=== PATIENT | male | born 1995 ===

== ENCOUNTER 2016-05-18 20:11 | Observation (INO) | payer OTHER ==
[2016-05-18] MEDS ORDERED: Vancomycin 1gm in NS 250ml 250 ML IVPB STA (21:08)
[2016-05-18] MEDS ORDERED: Sodium Chloride 0.9% 1,000 ML IV SCH (21:15)
--- NOTE | 2016-05-18 21:15 | ED PDOC ---
Arrival/HPI <Aron Shi - Last Filed: 05/19/16 00:06> - General Historian: Patient <Geovany Espana - Last Filed: 05/23/16 15:22> - General Chief Complaint: Lower Extremity Problem/Injury Time Seen by Provider: 05/18/16 20:48 - History of Present Illness Narrative History of Present Illness (Text): 05/18/16 21:15 20 y/o male, no pmh, nkda, send in by the billing specialist from the [place], [place] after fail the outpatient oral antibiotic. Pt. has rt. toe ingrown toe nail after cutting it too short about 3 months ago, been ignoring the pain and swelling, more painful about 5 days ago and the billing specialist started him on the oral antibiotic but the pain got more severe today and told him to go to the nearest hospital to rule out osteomylitis due to the level of pain and extensive of the cellulitis, no fever or chills, no palpitation, no numbness or tingling, no other medical or psychological complaints. (Geovany Espana) Past Medical History - Provider Review Nursing Documentation Reviewed: Yes - Psychiatric Hx Substance Use: No <Geovany Espana - Last Filed: 05/23/16 15:22> Family/Social History - Physician Review Nursing Documentation Reviewed: Yes Family/Social History: Unknown Family HX Smoking Status: n Hx Alcohol Use: No Hx Substance Use: No <Geovany Espana - Last Filed: 05/23/16 15:22> Allergies/Home Meds <Aron Shi - Last Filed: 05/19/16 00:06> <Geovany Espana - Last Filed: 05/23/16 15:22> Allergies/Adverse Reactions: Allergies No Known Allergies Allergy (Verified 05/18/16 20:23) Review of Systems - Physician Review All systems were reviewed & negative as marked: Yes - Review of Systems Constitutional: absent: Fatigue, Fevers Eyes: absent: Vision Changes ENT: absent: Hearing Changes Cardiovascular: absent: Chest Pain Gastrointestinal: absent: Abdominal Pain, Nausea, Vomiting Genitourinary Male: absent: Dysuria Musculoskeletal: Arthralgias, Myalgias. absent: Back Pain, Neck Pain, Joint Swelling Skin: Rash, Pruritis, Cellulitis. absent: Skin Lesions, Laceration, Abscess, Ulcer Neurological: absent: Headache, Dizziness, Focal Weakness, Gait Changes, Speech Changes, Facial Droop, Disequilibrium, Seizure Psychiatric: absent: Anxiety, Depression, Suicidal Ideation <Geovany Espana - Last Filed: 05/23/16 15:22> Physical Exam Vital Signs Reviewed: Yes Temperature: Afebrile Blood Pressure: Normal Pulse: Regular Respiratory Rate: Normal Appearance: Positive for: Well-Appearing, Non-Toxic, Comfortable Pain Distress: Moderate Mental Status: Positive for: Alert and Oriented X 3 - Systems Exam Head: Present: Atraumatic, Normocephalic Pupils: Present: PERRL Extroacular Muscles: Present: EOMI Conjunctiva: Present: Normal Mouth: Present: Moist Mucous Membranes Neck: Present: Normal Range of Motion Respiratory/Chest: Present: Clear to Auscultation, Good Air Exchange. No: Respiratory Distress, Accessory Muscle Use Cardiovascular: Present: Regular Rate and Rhythm, Normal S1, S2. No: Murmurs Abdomen: Present: Normal Bowel Sounds. No: Tenderness, Distention, Peritoneal Signs Back: Present: Normal Inspection Upper Extremity: Present: Normal Inspection. No: Cyanosis, Edema Lower Extremity: Present: Normal Inspection, Other (Rt. foot: visible cellulitis on the rt. foot entire toe and radiating to the dorsum aspect of the foot with dark brown skin discoloration and dry purulant discharge, +DPPT pulses, FROM without limitation, sensation intact, motor 5/5, +DPPT pulses, capillary refill< 2 seconds, neurovascular intact. ). No: Edema Neurological: Present: GCS=15, CN II-XII Intact, Speech Normal Skin: Present: Warm, Dry, Normal Color. No: Rashes Psychiatric: Present: Alert, Oriented x 3, Normal Insight, Normal Concentration <Geovany Espana - Last Filed: 05/23/16 15:22> Vital Signs Temp Pulse Resp BP Pulse Ox 05/19/16 02:12 88 18 116/74 99 05/19/16 00:12 82 16 107/75 100 05/18/16 22:12 96 H 16 121/72 99 05/18/16 20:15 98.2 F 100 H 18 112/62 98 Medical Decision Making <Aron Shi - Last Filed: 05/19/16 00:06> - Lab Interpretations I have reviewed the lab results: Yes Interpretation: No clinic. lab abnormalty - RAD Interpretation Project Planner: Radiologist <Geovany Espana - Last Filed: 05/23/16 15:22> ED Course and Treatment: 05/18/16 21:12 -labs/blood culture -rt. foot xray and chest x-ray -IV vancomycin/toradol -Will admit for fail outpatient oral antibiotic treatment and need ID and billing specialist evaluation on inpatient. 05/19/16 00:04 -Labs are non-significant -Foot xray show no fracture or dislocation except questionable soft tissue erosion? -Chest x-ray show no active disease -I spoke to the night doctor Dr. Huntley and his resident Dr. Lissette menon which I discussed the case/labs to observation the patient for MRI of the foot to rule out osteomylitis. -I spoke to the ER attending DR. Shi, he agreed on the diagnosis/ treatment and admission plan. (Geovany Espana) - Lab Interpretations Microbiology Results: Microbiology Results 05/18/16 21:50 Blood-Venous Blood Culture - Preliminary NO GROWTH AFTER 4 DAYS 05/18/16 22:00 Blood-Venous Blood Culture - Preliminary NO GROWTH AFTER 4 DAYS Lab Results: 05/18/16 21:00 05/18/16 21:00 Lab Results 05/18/16 21:00: WBC 9.3, RBC 5.77, Hgb 16.7, Hct 48.3, MCV 83.7, MCH 28.9, MCHC 34.6, RDW 13.2, Plt Count 349, MPV 9.2, Gran % 70.5 H, Lymph % (Auto) 20.1 L, [place] % (Auto) 8.0 H, Eos % (Auto) 1.2 L, Baso % (Auto) 0.2, Gran # 6.56 H, Lymph # 1.9, [place] # 0.7 H, Eos # 0.1, Baso # 0.02, Sodium 139, Potassium 3.8, Chloride 97 L, Carbon Dioxide 29, Anion Gap 17, BUN 13, Creatinine 0.8, Est GFR ( Amer) > 60, Est GFR (Non-Af Amer) > 60, Random Glucose 99, Calcium 9.8 , Total Bilirubin 0.9, AST 43, ALT 33, Alkaline Phosphatase 132, Total Protein 9.6 H, Albumin 5.0 H, Globulin 4.6, Albumin/Globulin Ratio 1.1 - RAD Interpretation Radiology Orders: 05/18/16 21:08 CHEST PORTABLE [RAD] Stat FOOT RIGHT GREAT TOE ROUTINE [RAD] Stat Chest x-ray: no active disease Rt. foot xray: soft tissue swelling, possible small erosion? (Geovany Espana) - Medication Orders Current Medication Orders: Discontinued Medications Enoxaparin Sodium (Lovenox) 40 mg SC DAILY [facility] PRN Reason: Protocol Last Admin: 05/19/16 09:31 Dose: 40 MG Protocol for PTT Monitoring Document 05/19/16 09:31 Susan (Rec: 05/19/16 09:31 [id number]) Protocol Protocol for PTT Monitoring Following clinical pathway protocol (regime/therapy) Subcutaneous Administrations Document 05/19/16 09:31 CHERYLE (Rec: 05/19/16 09:31 [id number]) Injection Site MAR Injection Site Right Abdomen Charges for Administration # of Subcutaneous Administrations 1 Sodium Chloride (Sodium Chloride 0.9%) 1,000 mls @ 100 mls/hr IV .Q10H [facility] Last Admin: 05/18/16 21:30 Dose: 100 MLS/HR eMAR Start Stop Document 05/18/16 21:30 ELIZABETH (Rec: 05/19/16 01:37 ELIZABETH [id number]) Intravenous Solution Start Date 05/18/16 Start Time 21:30 Vancomycin HCl (Vancomycin 1gm) 250 mls @ 167 mls/hr IVPB STAT STA PRN Reason: Protocol Stop: 05/18/16 22:37 Last Admin: 05/18/16 22:11 Dose: 167 MLS/HR eMAR Start Stop Document 05/18/16 22:11 ELIZABETH (Rec: 05/18/16 22:12 ELIZABETH [id number]) Intravenous Solution Start Date 05/18/16 Start Time 22:11 End Date 05/19/16 End time 00:11 Total Infusion Time 120 Cefazolin Sodium (Ancef 1gm In Ns) 100 mls @ 100 mls/hr IVPB Q8 [facility] PRN Reason: Protocol Last Admin: 05/19/16 13:26 Dose: 100 MLS/HR eMAR Start Stop Document 05/19/16 13:26 KAA (Rec: 05/19/16 13:26 KASusan [id number]) Intravenous Solution Start Date 05/19/16 Start Time 13:26 End Date 05/19/16 End time 14:26 Total Infusion Time 60 Vancomycin HCl (Vancomycin 1gm) 250 mls @ 167 mls/hr IVPB Q12H [facility] PRN Reason: Protocol Stop: 05/26/16 06:31 Vancomycin HCl (Vancomycin 1gm) 250 mls @ 167 mls/hr IVPB 1000,2200 [facility]ER PRN Reason: Protocol Last Admin: 05/19/16 09:32 Dose: 167 MLS/HR eMAR Start Stop Document 05/19/16 09:32 KAA (Rec: 05/19/16 09:32 KAA [id number]) Intravenous Solution Start Date 05/19/16 Start Time 09:32 End Date 05/19/16 End time 11:02 Total Infusion Time 90 Ketorolac Tromethamine (Toradol) 30 mg IVP STAT STA Stop: 05/18/16 21:09 Last Admin: 05/18/16 22:15 Dose: 30 MG IVP Administration Document 05/18/16 22:15 ELIZABETH (Rec: 05/18/16 22:15 ELIZABETH [id number]) Charges for Administration # of IVP Administrations 1 Ketorolac Tromethamine (Toradol) 15 mg IVP Q6 PRN PRN Reason: Pain, moderate (4-7) Pantoprazole Sodium (Protonix Ec Tab) 40 mg PO ACB [facility] Last Admin: 05/19/16 09:30 Dose: 40 MG Silver Sulfadiazine (Silvadene 1% 20 Gm) 0 ea TOP BID [facility] - PA / HOISTING ENGINEER / Resident Statement CHIVO has reviewed & agrees with the documentation as recorded. CHIVO has examined the patient and agrees with the treatment plan. <Aron Shi - Last Filed: 05/19/16 00:06> - PA / HOISTING ENGINEER / Resident Statement CHIVO has reviewed & agrees with the documentation as recorded. <Geovany Espana - Last Filed: 05/23/16 15:22> Disposition/Present on Arrival <Aron Shi - Last Filed: 05/19/16 00:06> - Present on Arrival Any Indicators Present on Arrival: No History of DVT/PE: No History of Uncontrolled Diabetes: No Urinary Catheter: No History of Decub. Ulcer: No History Surgical Site Infection Following: None - Disposition Have Diagnosis and Disposition been Completed?: Yes Disposition Time: 21:13 Patient Plan: Observation <Geovany Espana - Last Filed: 05/23/16 15:22> - Disposition Diagnosis: Cellulitis of foot, Failure of outpatient treatment Disposition: HOSPITALIZED Condition: STABLE
[2016-05-18 22:04] LABS: ADD MANUAL DIFF? NO
[2016-05-18 22:09] LABS: BASO # 0.02 K/mm3 (0.0-2.0); BASO % 0.2 % (0.0-3.0); EOS # 0.1 (0.0-0.7); EOS % 1.2 % (1.5-5.0); GRAN # 6.56 (1.4-6.5); GRAN % 70.5 % (50.0-68.0); HEMATOCRIT 48.3 % (42.0-52.0); LYMPH # 1.9 (1.2-3.4); LYMPH % 20.1 % (22.0-35.0); MEAN CELL VOLUME 83.7 fL (80.0-105.0); MEAN CORPUSCULAR HEMOGLOBIN 28.9 pg (25.0-35.0); MEAN CORPUSCULAR HGB CONC 34.6 g/dl (31.0-37.0); MEAN PLATELET VOLUME 9.2 fl (7.0-11.0); MONO # 0.7 (0.1-0.6); PLATELET COUNT 349 10^3/uL (120.0-450.0); RED CELL DISTRIBUTION WIDTH 13.2 % (11.5-14.5); WHITE BLOOD COUNT 9.3 10^3/ul (4.5-11.0)
[2016-05-18 22:20] LABS: ALB/GLOB RATIO 1.1 (1.1-1.8); ALKALINE PHOSPHATASE 132 U/L (38-133); ALT/SGPT 33 U/L (7-56); AST/SGOT 43 U/L (15-59); BILIRUBIN,TOTAL 0.9 mg/dL (0.2-1.3); BLOOD UREA NITROGEN 13 mg/dL (7-21); CALCIUM 9.8 mg/dL (8.4-10.5); CARBON DIOXIDE 29 mmol/L (21-33); CHLORIDE 97 mmol/L (98-107); GFR AFRICAN-AMERICAN > 60; GLUCOSE,RANDOM 99 mg/dL (70-110); POTASSIUM 3.8 mmol/L (3.6-5.0); SODIUM 139 mmol/L (132-148); TOTAL PROTEIN 9.6 g/dL (5.8-8.3)
--- NOTE | 2016-05-19 01:00 | CP.PCM.HP ---
<Lissette Moss - Last Filed: 05/19/16 01:42> History of Present Illness - History of Present Illness History of Present Illness: PGY [address] Neville H&P Admission: R foot cellulits failed outpatient treatment 20 y/o male, no pmh, nkda, send in by the lube man from the [place], [place] after fail the outpatient oral antibiotic. Pt. has rt. toe ingrown toe nail after cutting it too short about 3 months ago, been ignoring the pain and swelling, more painful about 5 days ago and the lube man started him on the oral antibiotic but the pain got more severe today. Mechanical Expert told pt to go to the nearest hospital to rule out osteomylitis due to the level of pain and extensive of the cellulitis. Currently the pain localizes from R toe to 1st metatarsalphalageal joint, 1-2/10 at rest. When bear weight, it can be 5/10. Pt ambulates independently without assistive device. In the ED, T 98.2, HR 100. BP 112/62. RR 18. 98RA WBC 9.3. Electrolytes wnl. Ketoroc was able to control the pain Blood Culture were drawn. Pt received vango x 1 and 1L NS bolus. R foot x-ray and CXR was taken in ED. ROS - no fever or chills, no CP/SOB/palpitation, no numbness or tingling, dyusria, N/V/D/C PMH None PSH None FH Healthy SH Live with cousin. Ambulate in Never smoke. All NKDA Med None PMD none Outpatient lube man Yu Hwang DPM Present on Admission - Present on Admission Any Indicators Present on Admission: No Past Patient History - Past Social History Smoking Status: n - PSYCHIATRIC Hx Substance Use: No - SURGICAL HISTORY Hx Surgeries: No Meds Allergies/Adverse Reactions: Allergies Allergy/AdvReac Type Severity Reaction Status Date / Time No Known Allergies Allergy Verified 05/18/16 20:23 Physical Exam - Constitutional Appears: No Acute Distress - Head Exam Head Exam: ATRAUMATIC, NORMOCEPHALIC - Eye Exam Eye Exam: EOMI, Normal appearance, PERRL - ENT Exam ENT Exam: Mucous Membranes Moist - Neck Exam Neck exam: Negative for: Lymphadenopathy, Meningismus Additional comments: supple - Respiratory Exam Respiratory Exam: Clear to Auscultation Bilateral, NORMAL BREATHING PATTERN. absent: Rales, Rhonchi, Wheezes - Cardiovascular Exam Cardiovascular Exam: REGULAR RHYTHM, +S1, +S2. absent: Systolic Murmur - GI/Abdominal Exam GI & Abdominal Exam: Normal Bowel Sounds, Soft. absent: Tenderness - Extremities Exam Extremities exam: Positive for: normal capillary refill, pedal pulses present. Negative for: calf tenderness, pedal edema Additional comments: R toe swollen with erythema, no drainage, no bleed. Increased warmth big toe, R foot. All joint ROM intact without pain up to knee. No hall cyst b/l. - Back Exam Back exam: absent: CVA tenderness (L), CVA tenderness (R) Results - Vital Signs Recent Vital Signs: Last Vital Signs Temp 98.2 F 05/18/16 20:15 Pulse 100 H 05/18/16 20:15 Resp 18 05/18/16 20:15 BP 112/62 05/18/16 20:15 Pulse Ox 98 05/18/16 20:15 - Labs Result Diagrams: 05/18/16 21:00 05/18/16 21:00 Assessment & Plan - Assessment and Plan (Free Text) Plan: 20 y/o male, no pmh, nkda, send in by the lube man from the [place], [place] for R toe/hallus cellulitis after failed the outpatient oral antibiotic R toe/hallus cellulitis - No tachycardia, no need for doppler R leg vein - toradol for pain control - Ancef IV - elevated R leg - chest A1c R/o osteomyelitis - MRI R foot - ESR, CRP Prophylaxis - lovenox - protonix S/R/D/w Dr. Neville - Date & Time Date: 05/19/16 Time: 01:50 <Camilo Neville - Last Filed: 05/19/16 21:03> Results - Vital Signs Recent Vital Signs: Last Vital Signs Temp 97.6 F 05/19/16 08:52 Pulse 80 05/19/16 08:52 Resp 18 05/19/16 08:52 BP 120/72 05/19/16 08:52 Pulse Ox 98 05/19/16 08:52 - Labs Result Diagrams: 05/19/16 07:50 05/19/16 07:50 Labs: Laboratory Results - last 24 hr 05/19/16 07:50 WBC 10.7 RBC 5.29 Hgb 14.9 Hct 44.4 MCV 83.9 MCH 28.2 MCHC 33.6 RDW 13.3 Plt Count 317 MPV 9.0 Gran % 75.7 H Lymph % (Auto) 18.3 L [place] % (Auto) 3.9 Eos % (Auto) 2.0 Baso % (Auto) 0.1 Gran # 8.13 H Lymph # 2.0 [place] # 0.4 Eos # 0.2 Baso # 0.01 ESR 3 Sodium 142 Potassium 4.3 Chloride 105 Carbon Dioxide 27 Anion Gap 14 BUN 12 Creatinine 0.6 Est GFR ( Amer) > 60 Est GFR (Non-Af Amer) > 60 Random Glucose 98 Hemoglobin A1c 5.5 Calcium 9.0 Total Bilirubin 1.1 AST 30 ALT 28 Alkaline Phosphatase 106 C-React Prot High Sens 2.24 Total Protein 7.5 Albumin 4.0 Globulin 3.6 Albumin/Globulin Ratio 1.1 Attending/Attestation - Attestation I have personally seen and examined this patient.: Yes I have fully participated in the care of the patient.: Yes I have reviewed all pertinent clinical information: Yes Notes (Text): 05/19/16 21:02 Patient was seen by me when he was in room # 12 in the ER. Agree with history , physical examination , assessment and plan.
[2016-05-19 05:16] VITALS: BMI 23.2
[2016-05-19] MEDS ORDERED: Vancomycin 1gm in NS 250ml 250 ML IVPB SCH ×2 (06:30→10:00)
[2016-05-19] MEDS ORDERED: Pantoprazole 40 mg EC Tab PO SCH (07:30)
[2016-05-19 08:00] LABS: ADD MANUAL DIFF? NO
[2016-05-19 08:09] LABS: BASO # 0.01 K/mm3 (0.0-2.0); BASO % 0.1 % (0.0-3.0); EOS # 0.2 (0.0-0.7); GRAN # 8.13 (1.4-6.5); GRAN % 75.7 % (50.0-68.0); HEMATOCRIT 44.4 % (42.0-52.0); LYMPH % 18.3 % (22.0-35.0); MEAN CELL VOLUME 83.9 fL (80.0-105.0); MEAN CORPUSCULAR HEMOGLOBIN 28.2 pg (25.0-35.0); MEAN CORPUSCULAR HGB CONC 33.6 g/dl (31.0-37.0); MONO # 0.4 (0.1-0.6); MONO % 3.9 % (1.0-6.0); PLATELET COUNT 317 10^3/uL (120.0-450.0); RED CELL DISTRIBUTION WIDTH 13.3 % (11.5-14.5); WHITE BLOOD COUNT 10.7 10^3/ul (4.5-11.0)
--- NOTE | 2016-05-19 08:49 | RAD ---
HISTORY: medical clearance COMPARISON: No prior. FINDINGS: LUNGS: No active pulmonary disease. PLEURA: No significant pleural effusion identified, no pneumothorax apparent. CARDIOVASCULAR: Normal. OSSEOUS STRUCTURES: No significant abnormalities. VISUALIZED UPPER ABDOMEN: Normal. OTHER FINDINGS: None. IMPRESSION: No active disease.
--- NOTE | 2016-05-19 08:51 | RAD ---
PROCEDURE: Radiographs of the right great toe. TECHNIQUE:: AP radiograph of the right foot, with oblique and lateral view of the right great toe. COMPARISON: None. FINDINGS: BONES: Suspicious for possible small erosion at the tip of distal phalanx of the big toe. There is adjacent punctate calcification or small ossicles. JOINTS: Normal. SOFT TISSUES: Soft tissue swelling seen at the mid and distal PICC 2. OTHER FINDINGS: None. IMPRESSION: Soft tissue swelling and possible small erosion at the distal right big toe. If clinically warranted further assessment by other moderately is suggested to evaluate for osteomyelitis.
[2016-05-19 08:53] VITALS: BP 120/72; PULSE 80; RESP 18; TEMP 97.6; O2SAT 98
[2016-05-19 08:58] LABS: ALB/GLOB RATIO 1.1 (1.1-1.8); ALKALINE PHOSPHATASE 106 U/L (38-133); ALT/SGPT 28 U/L (7-56); AST/SGOT 30 U/L (15-59); BILIRUBIN,TOTAL 1.1 mg/dL (0.2-1.3); BLOOD UREA NITROGEN 12 mg/dL (7-21); CARBON DIOXIDE 27 mmol/L (21-33); CHLORIDE 105 mmol/L (98-107); GFR AFRICAN-AMERICAN > 60; GLUCOSE,RANDOM 98 mg/dL (70-110); POTASSIUM 4.3 mmol/L (3.6-5.0); SODIUM 142 mmol/L (132-148); TOTAL PROTEIN 7.5 g/dL (5.8-8.3)
[2016-05-19 09:02] LABS: ERYTHROCYTE SEDIMENTATION RATE 3 mm/hr (0.0-15.0)
[2016-05-19] MEDS ORDERED: Enoxaparin 40 mg Syringe SC SCH (10:00)
--- NOTE | 2016-05-19 13:13 | CP.PCM.CON ---
History of Present Illness - History of Present Illness History of Present Illness: 20 y/o male, no pmh, nkda, seen at bedside for right big toe cellulitis and infection secondary to failed ingrown toenail treatment. Patient was sent in by the medical practice administrator from the [place], [place] after fail the outpatient oral antibiotic. Pt. has rt. toe ingrown toe nail after cutting it too short about 3 months ago, been ignoring the pain and swelling, more painful about 5 days ago and the medical practice administrator started him on the oral antibiotic but the pain got more severe today. Tool Or Die Drawing Checker told pt to go to the nearest hospital to rule out osteomylitis due to the level of pain and extensive of the cellulitis. Currently the pain localizes from R toe to 1st metatarsalphalageal joint, 2/10 at rest. When bear weight, it can be 5/10. Patient denies n/f/c/v/d/sob. Review of Systems - Constitutional Constitutional: As Per HPI Past Patient History - Past Social History Smoking Status: Never Smoked - MUSCULOSKELETAL/RHEUMATOLOGICAL Hx Falls: No - PSYCHIATRIC Hx Substance Use: No - SURGICAL HISTORY Hx Surgeries: No Meds Allergies/Adverse Reactions: Allergies Allergy/AdvReac Type Severity Reaction Status Date / Time No Known Allergies Allergy Verified 05/18/16 20:23 - Medications Medications: Current Medications Enoxaparin Sodium (Lovenox) 40 mg SC DAILY [facility]ANDER PRN Reason: Protocol Last Admin: 05/19/16 09:31 Dose: 40 mg Sodium Chloride (Sodium Chloride 0.9%) 1,000 mls @ 100 mls/hr IV .Q10H [facility] Last Admin: 05/18/16 21:30 Dose: 100 mls/hr Cefazolin Sodium (Ancef 1gm In Ns) 100 mls @ 100 mls/hr IVPB Q8 [facility]ANDER PRN Reason: Protocol Vancomycin HCl (Vancomycin 1gm) 250 mls @ 167 mls/hr IVPB 1000,2200 ALEXSANDER PRN Reason: Protocol Last Admin: 05/19/16 09:32 Dose: 167 mls/hr Ketorolac Tromethamine (Toradol) 15 mg IVP Q6 PRN PRN Reason: Pain, moderate (4-7) Pantoprazole Sodium (Protonix Ec Tab) 40 mg PO ACB [facility] Last Admin: 05/19/16 09:30 Dose: 40 mg Physical Exam - Constitutional Appears: Well, Non-toxic, No Acute Distress - Extremities Exam Additional comments: right foot focused: vasc: DP/PT 2/4, TG wnl, CFT < 3 sec to all digits, localized edema and erythema to right hallux neuro: grossly intact derm: localized edema and erythema to hallux, darkened discoloration surrounding nail bed, 1CC of purulence expressed from distal aspect of hallux, dried blood noted, medial border of nail bed absent ortho: pain on palpation to medial and lateral borders of right hallux - Neurological Exam Neurological exam: Oriented x3 - Psychiatric Exam Psychiatric exam: Normal Affect, Normal Mood Results - Vital Signs Recent Vital Signs: Last Vital Signs Temp 97.6 F 05/19/16 08:52 Pulse 80 05/19/16 08:52 Resp 18 05/19/16 08:52 BP 120/72 05/19/16 08:52 Pulse Ox 98 05/19/16 08:52 - Labs Result Diagrams: 05/19/16 07:50 05/19/16 07:50 Labs: Laboratory Results - last 24 hr 05/19/16 07:50 WBC 10.7 RBC 5.29 Hgb 14.9 Hct 44.4 MCV 83.9 MCH 28.2 MCHC 33.6 RDW 13.3 Plt Count 317 MPV 9.0 Gran % 75.7 H Lymph % (Auto) 18.3 L [place] % (Auto) 3.9 Eos % (Auto) 2.0 Baso % (Auto) 0.1 Gran # 8.13 H Lymph # 2.0 Tate # 0.4 Eos # 0.2 Baso # 0.01 ESR 3 Sodium 142 Potassium 4.3 Chloride 105 Carbon Dioxide 27 Anion Gap 14 BUN 12 Creatinine 0.6 Est GFR ( Amer) > 60 Est GFR (Non-Af Amer) > 60 Random Glucose 98 Hemoglobin A1c 5.5 Calcium 9.0 Total Bilirubin 1.1 AST 30 ALT 28 Alkaline Phosphatase 106 Total Protein 7.5 Albumin 4.0 Globulin 3.6 Albumin/Globulin Ratio 1.1 Assessment & Plan - Assessment and Plan (Free Text) Assessment: 20 y/o male seen at bedside for right hallux cellulitis secondary to failed ingrown toenail treatment Plan: patient evaluated and chart reviewed seen at bedside with attending Dr. Decker labs and vitals reviewed, afebrile Rx silvadene cream BID aseptic debridement of medial border of right hallux to remove remaining ingrown nail applied silvadene, DSD to right hallux ordered surgical shoe for patient to weight bear x ray of right foot shows soft tissue swelling, no fracture or dislocation f/u wound culture patient stable for d/c on oral keflex 500mg BID x 10 days patient to follow up with Dr. Decker as an outpatient
--- NOTE | 2016-05-19 15:39 | CP.PCM.CON ---
History of Present Illness - History of Present Illness History of Present Illness: 20 year old male with no significant medical history was sent by a Shank Boner for continued swelling and pain of the right hallux associated with an ingrown toe nail. He cut his nail about 3 months ago which led to an ingrown toenail and continued pain and swelling. He saw a mottler machine feeder 5 days ago and was started on PO antibiotics but the pain and swelling continued to worsen. The patient denies animal contacts, no soaking of the feet in water, no walking barefoot on soil. He denies fever or chills, no nausea or vomiting, no chest pain, no SOB, no cough or colds, no headache or dizziness, no abdominal pain, no diarrhea, no dysuria. Infectious Diseases consult is requested to further evaluate and manage. Review of Systems - Review of Systems All systems: reviewed and no additional remarkable complaints except (as per HPI ) Past Patient History - Past Medical History & Family History Past Medical History?: No Past Family History: Reviewed and not pertinent - Past Social History Smoking Status: Never Smoked Alcohol: Occasional Drugs: Denies Home Situation {Lives}: With Family - MUSCULOSKELETAL/RHEUMATOLOGICAL Hx Falls: No - PSYCHIATRIC Hx Substance Use: No - SURGICAL HISTORY Hx Surgeries: No Meds Allergies/Adverse Reactions: Allergies Allergy/AdvReac Type Severity Reaction Status Date / Time No Known Allergies Allergy Verified 05/18/16 20:23 - Medications Medications: Current Medications Enoxaparin Sodium (Lovenox) 40 mg SC DAILY ALEXSANDER PRN Reason: Protocol Sodium Chloride (Sodium Chloride 0.9%) 1,000 mls @ 100 mls/hr IV .Q10H [facility] Last Admin: 05/18/16 21:30 Dose: 100 mls/hr Cefazolin Sodium (Ancef 1gm In Ns) 100 mls @ 100 mls/hr IVPB Q8 ALEXSANDER PRN Reason: Protocol Vancomycin HCl (Vancomycin 1gm) 250 mls @ 167 mls/hr IVPB Q12H [facility]SANDER PRN Reason: Protocol Stop: 05/26/16 06:31 Ketorolac Tromethamine (Toradol) 15 mg IVP Q6 PRN PRN Reason: Pain, moderate (4-7) Pantoprazole Sodium (Protonix Ec Tab) 40 mg PO ACB [facility] Physical Exam - Constitutional Appears: Non-toxic, No Acute Distress - Head Exam Head Exam: NORMAL INSPECTION - ENT Exam ENT Exam: Mucous Membranes Moist - Neck Exam Neck exam: Negative for: Lymphadenopathy, Meningismus - Respiratory Exam Respiratory Exam: Decreased Breath Sounds. absent: Rales, Rhonchi - Cardiovascular Exam Cardiovascular Exam: +S1, +S2 - GI/Abdominal Exam GI & Abdominal Exam: Soft. absent: Tenderness - Extremities Exam Additional comments: right hallux with dry dressings in place Results - Vital Signs Recent Vital Signs: Last Vital Signs Temp 97.7 F 05/19/16 04:52 Pulse 90 05/19/16 04:52 Resp 16 05/19/16 04:52 BP 123/74 05/19/16 04:52 Pulse Ox 99 05/19/16 02:12 - Labs Result Diagrams: 05/19/16 07:50 05/19/16 07:50 Assessment & Plan - Assessment and Plan (Free Text) Plan: Assessment Right hallux skin and skin structure infection (celllulitis) associated with ingrown toenail Plan Started patient on Cefazolin and Vancomycin pending wound cx, blood cx; reviewed Podiatry evaluation and plan Will follow clinically
[2016-05-19] MEDS ORDERED: Silver Sulfadiazine 1% Cream (20 gm) TOP SCH (18:00)
--- NOTE | 2016-05-19 21:48 | CP.PCM.DIS ---
<Hai Nascimento - Last Filed: 05/20/16 20:13> Provider - Provider Date of Admission: 05/19/16 00:04 Attending physician: John Ortiz MD Primary care physician: Yu Hwang DPM Consults: ID: [id number] Podiatry: Jeronimo Time Spent in preparation of Discharge (in minutes): 45 Hospital Course - Lab Results Lab Results: Micro Results 05/19/16 05:34 Toe Gram Stain - Final Most Recent Lab Values WBC 10.7 10^3/ul (4.5-11.0) 05/19/16 07:50 RBC 5.29 10^6/uL (3.5-6.1) 05/19/16 07:50 Hgb 14.9 gm/dL (14.0-18.0) 05/19/16 07:50 Hct 44.4 % (42.0-52.0) 05/19/16 07:50 MCV 83.9 fL (80.0-105.0) 05/19/16 07:50 MCH 28.2 pg (25.0-35.0) 05/19/16 07:50 MCHC 33.6 g/dl (31.0-37.0) 05/19/16 07:50 RDW 13.3 % (11.5-14.5) 05/19/16 07:50 Plt Count 317 10^3/uL (120.0-450.0) 05/19/16 07:50 MPV 9.0 fl (7.0-11.0) 05/19/16 07:50 Gran % 75.7 % (50.0-68.0) H 05/19/16 07:50 Lymph % (Auto) 18.3 % (22.0-35.0) L 05/19/16 07:50 [place] % (Auto) 3.9 % (1.0-6.0) 05/19/16 07:50 Eos % (Auto) 2.0 % (1.5-5.0) 05/19/16 07:50 Baso % (Auto) 0.1 % (0.0-3.0) 05/19/16 07:50 Gran # 8.13 (1.4-6.5) H 05/19/16 07:50 Lymph # 2.0 (1.2-3.4) 05/19/16 07:50 [place] # 0.4 (0.1-0.6) 05/19/16 07:50 Eos # 0.2 (0.0-0.7) 05/19/16 07:50 Baso # 0.01 K/mm3 (0.0-2.0) 05/19/16 07:50 ESR 3 mm/hr (0.0-15.0) 05/19/16 07:50 Sodium 142 mmol/L (132-148) 05/19/16 07:50 Potassium 4.3 mmol/L (3.6-5.0) 05/19/16 07:50 Chloride 105 mmol/L (98-107) 05/19/16 07:50 Carbon Dioxide 27 mmol/L (21-33) 05/19/16 07:50 Anion Gap 14 (10-20) 05/19/16 07:50 BUN 12 mg/dL (7-21) 05/19/16 07:50 Creatinine 0.6 mg/dL (0.5-1.4) 05/19/16 07:50 Est GFR ( Amer) > 60 05/19/16 07:50 Est GFR (Non-Af Amer) > 60 05/19/16 07:50 Random Glucose 98 mg/dL (70-110) 05/19/16 07:50 Hemoglobin A1c 5.5 % (4.2-6.5) 05/19/16 07:50 Calcium 9.0 mg/dL (8.4-10.5) 05/19/16 07:50 Total Bilirubin 1.1 mg/dL (0.2-1.3) 05/19/16 07:50 AST 30 U/L (15-59) 05/19/16 07:50 ALT 28 U/L (7-56) 05/19/16 07:50 Alkaline Phosphatase 106 U/L (38-133) 05/19/16 07:50 C-React Prot High Sens 2.24 mg/L (1.00-3.00) 05/19/16 07:50 Total Protein 7.5 g/dL (5.8-8.3) 05/19/16 07:50 Albumin 4.0 g/dL (3.0-4.8) 05/19/16 07:50 Globulin 3.6 gm/dL 05/19/16 07:50 Albumin/Globulin Ratio 1.1 (1.1-1.8) 05/19/16 07:50 - Hospital Course Hospital Course: Upon Admission: 20yo M with no PMHx here for evaluation of right first in-grown toe nail after cutting it too short 3 months ago. Patient was evaluated by a executive account manager and started on oral ABX. Patient started to have severe pain today and was asked to come into the ER to r/o osteo. Podiatry consult was obtained and aseptic debridement of the medial border of the right hallux was started with silvadene cream. This was prescribed to the patient to use BID. Patient hba1c is 5.5, patient is healthy, afebrile, no leukocytosis. Patient was discharged home on keflex 500mg TID for 10 days. Patient is to follow up with Dr. Decker as out- patient. Wound cultures were sent and are to be followed up with Dr. Decker. 1. Right First Toe cellulitis. Keflex 500mg TID x10 days. Silvadene Upon Discharge: CLEAN TOE WOUND TWICE A DAY WITH PEROXIDE. APPLY SILVADENE AND A DRY DRESSING. FOLLOW UP WITH DR. DECKER ON MONDAY AT 10AM. TAKE ANTIBIOTIC 3 TIMES A DAY. Patient is cleared for discharge as per Dr. Ortiz 1. Follow up with Dr. Decker, Podiatry, in 3 days. Call for appointment 2. Take Antibiotics as prescribed 3. Return to the ER with any concerning symptoms. New Prescription: Keflex 500mg PO tid x10 days #30/0 Discharge Exam - Head Exam Head Exam: ATRAUMATIC, NORMAL INSPECTION, NORMOCEPHALIC - Eye Exam Eye Exam: EOMI, Normal appearance, PERRL. absent: Scleral icterus Pupil Exam: PERRL - ENT Exam ENT Exam: Mucous Membranes Moist - Neck Exam Neck exam: Full Rom - Respiratory Exam Respiratory Exam: Clear to PA & Lateral, NORMAL BREATHING PATTERN. absent: Respiratory Distress - Cardiovascular Exam Cardiovascular Exam: REGULAR RHYTHM, RRR, +S1, +S2. absent: JVD - GI/Abdominal Exam GI & Abdominal Exam: Normal Bowel Sounds, Unremarkable - Extremities Exam Additional comments: right first toe, erythema, ingrown toe-nail. DP and PT pulses intact - Neurological Exam Neurological exam: Alert, Oriented x3, Reflexes Normal - Psychiatric Exam Psychiatric exam: Normal Affect, Normal Mood - Skin Skin Exam: Dry, Intact, Normal Color, Warm Discharge Plan - Discharge Medications Prescriptions: Cephalexin [Keflex] 500 mg PO TID #30 capsule Silver Sulfadiazine 1% 20 gm [Silvadene 1% 20 gm] 1 applic TOP BID #1 tube - Follow Up Plan Condition: STABLE Disposition: HOME/ ROUTINE Instructions: Cellulitis (DC) Additional Instructions: CLEAN TOE WOUND TWICE A DAY WITH PEROXIDE. APPLY SILVADENE AND A DRY DRESSING. FOLLOW UP WITH DR. DECKER ON MONDAY AT 10AM. TAKE ANTIBIOTIC 3 TIMES A DAY. Patient is cleared for discharge as per Dr. rOtiz 1. Follow up with Dr. Decker, Podiatry, in 3 days. Call for appointment 2. Take Antibiotics as prescribed 3. Return to the ER with any concerning symptoms. New Prescription: Keflex 500mg PO tid x10 days #30/0 Referrals: Lenka Decker DPM [Staff Provider] - Yu Hwang DPM [Primary Care Provider] - <John Ortiz MD - Last Filed: 05/21/16 14:33> Provider - Provider Date of Admission: 05/19/16 00:04 Attending physician: John Ortiz MD Primary care physician: Yu Hwang DPM Hospital Course - Lab Results Lab Results: Micro Results 05/19/16 05:34 Toe Gram Stain - Final 05/19/16 05:34 Toe Wound Culture - Preliminary Most Recent Lab Values WBC 10.7 10^3/ul (4.5-11.0) 05/19/16 07:50 RBC 5.29 10^6/uL (3.5-6.1) 05/19/16 07:50 Hgb 14.9 gm/dL (14.0-18.0) 05/19/16 07:50 Hct 44.4 % (42.0-52.0) 05/19/16 07:50 MCV 83.9 fL (80.0-105.0) 05/19/16 07:50 MCH 28.2 pg (25.0-35.0) 05/19/16 07:50 MCHC 33.6 g/dl (31.0-37.0) 05/19/16 07:50 RDW 13.3 % (11.5-14.5) 05/19/16 07:50 Plt Count 317 10^3/uL (120.0-450.0) 05/19/16 07:50 MPV 9.0 fl (7.0-11.0) 05/19/16 07:50 Gran % 75.7 % (50.0-68.0) H 05/19/16 07:50 Lymph % (Auto) 18.3 % (22.0-35.0) L 05/19/16 07:50 [place] % (Auto) 3.9 % (1.0-6.0) 05/19/16 07:50 Eos % (Auto) 2.0 % (1.5-5.0) 05/19/16 07:50 Baso % (Auto) 0.1 % (0.0-3.0) 05/19/16 07:50 Gran # 8.13 (1.4-6.5) H 05/19/16 07:50 Lymph # 2.0 (1.2-3.4) 05/19/16 07:50 [place] # 0.4 (0.1-0.6) 05/19/16 07:50 Eos # 0.2 (0.0-0.7) 05/19/16 07:50 Baso # 0.01 K/mm3 (0.0-2.0) 05/19/16 07:50 ESR 3 mm/hr (0.0-15.0) 05/19/16 07:50 Sodium 142 mmol/L (132-148) 05/19/16 07:50 Potassium 4.3 mmol/L (3.6-5.0) 05/19/16 07:50 Chloride 105 mmol/L (98-107) 05/19/16 07:50 Carbon Dioxide 27 mmol/L (21-33) 05/19/16 07:50 Anion Gap 14 (10-20) 05/19/16 07:50 BUN 12 mg/dL (7-21) 05/19/16 07:50 Creatinine 0.6 mg/dL (0.5-1.4) 05/19/16 07:50 Est GFR ( Amer) > 60 05/19/16 07:50 Est GFR (Non-Af Amer) > 60 05/19/16 07:50 Random Glucose 98 mg/dL (70-110) 05/19/16 07:50 Hemoglobin A1c 5.5 % (4.2-6.5) 05/19/16 07:50 Calcium 9.0 mg/dL (8.4-10.5) 05/19/16 07:50 Total Bilirubin 1.1 mg/dL (0.2-1.3) 05/19/16 07:50 AST 30 U/L (15-59) 05/19/16 07:50 ALT 28 U/L (7-56) 05/19/16 07:50 Alkaline Phosphatase 106 U/L (38-133) 05/19/16 07:50 C-React Prot High Sens 2.24 mg/L (1.00-3.00) 05/19/16 07:50 Total Protein 7.5 g/dL (5.8-8.3) 05/19/16 07:50 Albumin 4.0 g/dL (3.0-4.8) 05/19/16 07:50 Globulin 3.6 gm/dL 05/19/16 07:50 Albumin/Globulin Ratio 1.1 (1.1-1.8) 05/19/16 07:50 Attending/Attestation - Attestation I have personally seen and examined this patient.: Yes I have fully participated in the care of the patient.: Yes I have reviewed all pertinent clinical information, including history, physical exam and plan: Yes Notes (Text): Patient was seen and examined with biomedical engineering technician .Agreed with resident assessment and plan. 20 yrs male was admitted with right hallux cellulitis, was evaluated by Podiatry and was cleared for discharged with oral antibiotics.Patient will be discharged home and will follow up with Podiatry Management plan was discussed in detail with patient Education was provided.
== END 2016-05-19 18:22 | disposition home or self-care (01) ==
LOC: ED 20:11 → ERH 05-19 00:04 → 5RSO 05-19 04:25
PROVIDERS: ADMIT Internal Medicine; ATTEND Internal Medicine
DX: L03.031 Cellulitis of right toe (principal); L60.0 Ingrowing nail; L03.115 Cellulitis of right lower limb
CPT/HCPCS: 36415; 71010; 73660; 80053; 83036; 85025; 85651; 86140; 87040; 87070; 96365; 96366; 96375; 99284; G0378; J0690; J1650; J1885; J7040